=== PATIENT | male | born 1985 ===

== ENCOUNTER 2023-08-22 13:08 | Emergency (ER) | payer OTHER ==
[2023-08-22] MEDS ORDERED: Ondansetron 4 MG/2 ML SDV IV ONE (14:32)
[2023-08-22] MEDS ORDERED: Sodium Chloride 0.9% 10 ML Syringe FLUSH PRN (14:32)
[2023-08-22] MEDS ORDERED: Sodium Chloride 0.9% 1,000 ML IV ONE (14:32)
== END 2023-08-22 15:03 ==
LOC: DL.ED 13:08
DX: S06.0X1A Concussion with loss of consciousness of 30 minutes or less, initial encounter (principal); S32.019A Unspecified fracture of first lumbar vertebra, initial encounter for closed fracture; S20.419A Abrasion of unspecified back wall of thorax, initial encounter; X58.XXXA Exposure to other specified factors, initial encounter; Y93.89 Activity, other specified
CPT/HCPCS: 70450; 72125; 72128; 72131; 99285